=== PATIENT | male | born 1955 | race Caucasian/White ===

== ENCOUNTER 2017-12-23 13:51 | Day surgery (SDC) | payer BC ==
[~2017-12-23] VITALS: Ht 175.3 cm; Wt 82.3 kg
[~2017-12-23 13:51] MED LIST: Flomax0.4 MG PO; KETO10 PO; Percocet 5-3251 EACH PO; Zofran Odt4 MG SL
== END 2017-12-23 15:58 | disposition home or self-care (01) ==
LOC: ORSCSDS 13:51
PROVIDERS: Surgery
PROC: 0DBK8ZX Excision of Ascending Colon, Via Natural or Artificial Opening Endoscopic, Diagnostic (ICD-10-PCS; principal; 2017-12-23 15:15)
DX: Z12.11 Encounter for screening for malignant neoplasm of colon (principal); D12.2 Benign neoplasm of ascending colon; F17.210 Nicotine dependence, cigarettes, uncomplicated
CPT/HCPCS: 88305; J7120

== ENCOUNTER 2024-06-23 07:17 | Day surgery (SDC) | payer OTHER ==
[~2024-06-23] VITALS: Ht 175.3 cm; Wt 54.2 kg
[2024-06-23] MEDS ORDERED: Lactated Ringer's 1,000 ML IV ONE ×2 (08:15→09:18)
[2024-06-23] MEDS ORDERED: propofoL 50 ML IV ONE (09:18)
[2024-06-23 10:07] VITALS: BP 105/63
== END 2024-06-23 10:22 | disposition home or self-care (01) ==
LOC: ORSCSDS 07:17
PROVIDERS: Surgery
PROC: 0DBP8ZX Excision of Rectum, Via Natural or Artificial Opening Endoscopic, Diagnostic (ICD-10-PCS; principal; 2024-06-23 08:30)
PROC: 0DBL8ZX Excision of Transverse Colon, Via Natural or Artificial Opening Endoscopic, Diagnostic (ICD-10-PCS; principal; 2024-06-23 08:30)
PROC: 0DBC8ZX Excision of Ileocecal Valve, Via Natural or Artificial Opening Endoscopic, Diagnostic (ICD-10-PCS; principal; 2024-06-23 08:30)
PROC: 0DBN8ZX Excision of Sigmoid Colon, Via Natural or Artificial Opening Endoscopic, Diagnostic (ICD-10-PCS; principal; 2024-06-23 08:30)
PROC: 0DBK8ZX Excision of Ascending Colon, Via Natural or Artificial Opening Endoscopic, Diagnostic (ICD-10-PCS; principal; 2024-06-23 08:30)
DX: Z12.11 Encounter for screening for malignant neoplasm of colon (principal); Z86.0100 Personal history of colon polyps, unspecified; D13.39 Benign neoplasm of other parts of small intestine; D12.2 Benign neoplasm of ascending colon; K63.5 Polyp of colon; K62.1 Rectal polyp; K64.8 Other hemorrhoids; F17.210 Nicotine dependence, cigarettes, uncomplicated
CPT/HCPCS: 88305; J2704; J7120